=== PATIENT | male | born 1975 | race Caucasian/White ===

== ENCOUNTER 2022-02-28 11:10 | Emergency (ER) | payer SELFPAY ==
[2022-02-28 11:37] VITALS: BP 154/99; PULSE 95; RESP 16; TEMP 97.8; BMI 28.7
[2022-02-28] MEDS ORDERED: LIDOCAINE 5% TOPICAL PATCH TP ONE (11:46)
[2022-02-28] MEDS ORDERED: METHOCARBAMOL 750 MG TAB PO ONE (11:46)
[2022-02-28] MEDS ORDERED: KETOROLAC TROMETHAMINE 30 MG/1 ML VIAL IM ONE (11:46)
[2022-02-28] MEDS ORDERED: METHOCARBAMOL 500 MG TABLET ONE (11:54)
[2022-02-28] MEDS ORDERED: KETOROLAC TROMETHAMINE 30 MG/1 ML VIAL ONE (11:54)
[2022-02-28] MEDS ORDERED: LIDOCAINE 5% TOPICAL PATCH ONE (11:55)
[2022-02-28] MEDS ORDERED: LIDOCAINE PATCH REMOVAL MC SCH (22:00)
== END 2022-02-28 12:20 | disposition home or self-care (01) ==
LOC: FER 11:10
PROC: 3E023GC Introduction of Other Therapeutic Substance into Muscle, Percutaneous Approach (ICD-10-PCS; principal; 2022-02-28)
DX: M54.12 Radiculopathy, cervical region (principal)
CPT/HCPCS: 99284-25